=== PATIENT | male | born 1950 | race Caucasian/White ===

== ENCOUNTER 2021-11-16 15:09 | Inpatient (IN) ==
[2021-11-16] MEDS ORDERED: 0.9 % Sodium Chloride 1,000 ML IVC ONE (15:45)
[2021-11-16] MEDS ORDERED: Pantoprazole 80 MG in 0.9 % Sodium Chloride 50 ML IVPB ONE (15:45)
[2021-11-16] MEDS ORDERED: Isovue-370 500 ML BOTTLE IVP ONE (15:47)
[2021-11-16 15:59] LABS: Hematocrit 34.8 % (37.5-50.1); Immature Granulocytes % 0.3 % (0-4); Mean Corpuscular HGB Conc 28.7 g/dL (31.6-35.5); Mean Corpuscular Hemoglobin 23.8 pg (28.0-33.3); Red Cell Distribution Width 17.2 % (11.5-14.5)
[2021-11-16 16:01] LABS: Basophils # 0.1 K/mcL (0.0-0.2); Basophils % 0.9 %; Eosinophils # 0.1 K/mcL (0.0-0.6); Eosinophils % 1.3 %; Immature Platelets 34.9 % (1.1-6.1); Lymphocytes # 0.9 K/mcL (0.6-4.6); Lymphocytes % 12.5 %; Mean Corpuscular Volume 82.7 fL (83.0-100.0); Monocytes # 0.4 K/mcL (0.0-1.3); Monocytes % 6.1 %; Neutrophils # 5.4 K/mcL (1.6-8.9); Platelet Count 80 K/mcL (140-400); Red Blood Count 4.21 M/mcL (4.19-5.50); Segmented Neutrophils % 78.9 %; White Blood Count 6.9 K/mcL (4.3-11.1)
[2021-11-16] MEDS ORDERED: Ondansetron 4 MG/2 ML VIAL IVP ONE (16:06)
[2021-11-16 16:07] LABS: INR 1.4; Prothrombin Time 16.1 Seconds (9.4-12.1)
[2021-11-16 16:09] LABS: Activated Partial Thrombo Time 38.2 Seconds (26.0-36.0)
[2021-11-16 16:16] LABS: BUN/Creatinine Ratio 30 (6-26); Blood Urea Nitrogen 29 mg/dL (8-23); Calcium 8.6 mg/dL (8.6-10.3); Carbon Dioxide 21 mEq/L (23-29); Chloride 103 mEq/L (98-107); Glucose 143 mg/dL (70-105); Osmolality,Calculated 282 (280-300); Potassium 3.9 mEq/L (3.5-5.1); Sodium 132 mEq/L (136-145); eGFR For African Americans > 60 (> 60); eGFR For Non-African Americans > 60 (> 60)
[2021-11-16 16:19] LABS: Anisocytosis 1+ (Not Present); Platelet Clumps Few (Not Present); Platelet Estimate Decreased (Normal); Reactive Lymphocytes Present (Not Present)
[2021-11-16 16:20] LABS: Hypochromasia Present (Not Present); Microcytosis Present (Not Present)
[2021-11-16 20:38] LABS: Hematocrit 28.5 % (37.5-50.1); Hemoglobin 8.3 g/dL (12.9-16.9); Immature Platelets 32.4 % (1.1-6.1); Mean Corpuscular HGB Conc 29.1 g/dL (31.6-35.5); Mean Corpuscular Hemoglobin 23.9 pg (28.0-33.3); Mean Corpuscular Volume 82.1 fL (83.0-100.0); Red Blood Count 3.47 M/mcL (4.19-5.50); Red Cell Distribution Width 17.2 % (11.5-14.5); White Blood Count 3.8 K/mcL (4.3-11.1)
[2021-11-16 20:40] LABS: Platelet Count 56 K/mcL (140-400)
[2021-11-16] MEDS ORDERED: cefTRIAXone 1,000 MG in 0.9 % Sodium Chloride Mini Bag 100 ML IVPB ONE (20:49)
[2021-11-16] MEDS: Octreotide 400 MCG in 0.9 % Sodium Chloride 100 ML IVC SCH (21:19)
[2021-11-16] MEDS: Pantoprazole 40 MG in 0.9 % Sodium Chloride Mini Bag 100 ML IVC SCH (21:19)
[2021-11-16] MEDS ORDERED: Naloxone 0.4 MG/ML INJ IVP PRN (21:52)
[2021-11-16] MEDS ORDERED: Ondansetron ODT 4 MG TAB.RAPDIS SL PRN (21:52)
[2021-11-16] MEDS ORDERED: Dextrose Gel 15 GM/37.5 ML TUBE PO PRN ×2 (22:04)
[2021-11-16] MEDS ORDERED: D5% in Water 1,000 ML IVC PRN (22:04)
[2021-11-16] MEDS ORDERED: *HR* Dextrose 50 % in Water (Syg) 50 ML SYRINGE IVP PRN (22:04)
[2021-11-16 23:48] LABS: Albumin 2.8 g/dL (3.5-5.7); Albumin/Globulin Ratio 0.7 (1.1-2.2); Bilirubin,Direct 0.2 mg/dL (0.0-0.2); Bilirubin,Indirect 0.5 mg/dL (0.0-1.0); Bilirubin,Total 0.7 mg/dL (0.3-1.0); Globulin 4.2 g/dL (2.4-3.5)
[2021-11-17] MEDS: Pantoprazole 40 MG in 0.9 % Sodium Chloride Mini Bag 100 ML IVC SCH ×4 (02:09→16:38)
[2021-11-17 02:33] LABS: Hematocrit 27.5 % (37.5-50.1); Hemoglobin 7.9 g/dL (12.9-16.9)
[2021-11-17 02:41] LABS: INR 1.4; Prothrombin Time 15.8 Seconds (9.4-12.1)
[2021-11-17 02:44] LABS: Activated Partial Thrombo Time 34.6 Seconds (26.0-36.0)
[2021-11-17 02:49] LABS: BUN/Creatinine Ratio 26 (6-26); Blood Urea Nitrogen 22 mg/dL (8-23); Calcium 7.7 mg/dL (8.6-10.3); Carbon Dioxide 20 mEq/L (23-29); Chloride 110 mEq/L (98-107); Chol/HDL Ratio 4.2 (0-4.9); Cholesterol 71 mg/dL (< 200); Glucose 108 mg/dL (70-105); HDL Cholesterol 17 mg/dL (40-59); LDL Cholesterol,Calculated 42 mg/dL (< 100); Magnesium 1.5 mg/dL (1.6-2.6); Osmolality,Calculated 282 (280-300); Potassium 3.9 mEq/L (3.5-5.1); Sodium 134 mEq/L (136-145); Triglycerides 61 mg/dL (< 150); eGFR For African Americans > 60 (> 60); eGFR For Non-African Americans > 60 (> 60)
[2021-11-17 03:45] LABS: Estimated Average Glucose 100 mg/dl; Hemoglobin A1C 5.1 %
[2021-11-17] MEDS: Octreotide 400 MCG in 0.9 % Sodium Chloride 100 ML IVC SCH ×2 (06:47→15:36)
[2021-11-17] MEDS: Insulin LISPRO 300 UNITS/3 ML VIAL SUBQ SCH ×3 (08:41→17:41)
[2021-11-17 09:29] LABS: Hemoglobin 7.8 g/dL (12.9-16.9)
[2021-11-17 09:31] LABS: Hematocrit 27.2 % (37.5-50.1)
[2021-11-17] MEDS ORDERED: Metoclopramide 10 MG/2 ML VIAL IVP ONE (15:29)
[2021-11-17] MEDS ORDERED: Lidocaine -MPF 2% 5 ML VIAL ONE (17:18)
[2021-11-17] MEDS ORDERED: Ondansetron 4 MG/2 ML VIAL ONE (18:22)
[2021-11-17] MEDS ORDERED: cefTRIAXone 1,000 MG in 0.9 % Sodium Chloride Mini Bag 100 ML IVPB SCH (21:00)
[2021-11-18 03:45] LABS: Hemoglobin 7.5 g/dL (12.9-16.9)
[2021-11-18 03:47] LABS: Basophils % 1.5 %; Eosinophils # 0.1 K/mcL (0.0-0.6); Eosinophils % 4.6 %; Hematocrit 26.7 % (37.5-50.1); Immature Granulocytes % 0.4 % (0-4); Immature Platelets 34.2 % (1.1-6.1); Lymphocytes # 0.4 K/mcL (0.6-4.6); Lymphocytes % 14.9 %; Mean Corpuscular HGB Conc 28.1 g/dL (31.6-35.5); Mean Corpuscular Hemoglobin 23.8 pg (28.0-33.3); Mean Corpuscular Volume 84.8 fL (83.0-100.0); Monocytes # 0.3 K/mcL (0.0-1.3); Monocytes % 9.9 %; Neutrophils # 1.8 K/mcL (1.6-8.9); Red Blood Count 3.15 M/mcL (4.19-5.50); Red Cell Distribution Width 17.1 % (11.5-14.5); Segmented Neutrophils % 68.7 %; White Blood Count 2.6 K/mcL (4.3-11.1)
[2021-11-18 03:57] LABS: Platelet Count 46 K/mcL (140-400)
[2021-11-18 04:05] LABS: BUN/Creatinine Ratio 17 (6-26); Blood Urea Nitrogen 17 mg/dL (8-23); Calcium 7.5 mg/dL (8.6-10.3); Carbon Dioxide 22 mEq/L (23-29); Chloride 109 mEq/L (98-107); Glucose 109 mg/dL (70-105); Osmolality,Calculated 280 (280-300); Sodium 134 mEq/L (136-145); eGFR For African Americans > 60 (> 60); eGFR For Non-African Americans > 60 (> 60)
[2021-11-18] MEDS: Insulin LISPRO 300 UNITS/3 ML VIAL SUBQ SCH ×2 (07:28→12:45)
[2021-11-18 07:52] VITALS: BP 100/65; PULSE 76; TEMP 99.2; O2SAT 96
[2021-11-18 09:56] LABS: Hematocrit 27.9 % (37.5-50.1)
[2021-11-18 09:59] LABS: % Iron Saturation 4 % (20-55); Iron 13 mcg/dL (65-175); Transferrin 264 mg/dL (203-362)
[2021-11-18 10:16] LABS: Folate 10.9 ng/mL (3.0-16.0)
[2021-11-18 10:17] LABS: Ferritin 17 ng/mL (20-250)
== END 2021-11-18 13:55 | disposition home or self-care (01) | DRG 378 ==
LOC: EMEROOARM 15:09 → 3ANU 15:09 → SUATTDRO 11-17 15:13
PROVIDERS: ADMIT Internal Medicine; ATTEND Internal Medicine

== ENCOUNTER 2022-03-22 11:54 | Inpatient (IN) ==
[2022-03-22] MEDS ORDERED: Ondansetron 4 MG/2 ML VIAL ONE (13:07)
[2022-03-22] MEDS ORDERED: Ondansetron 4 MG/2 ML VIAL IVP ONE (13:10)
[2022-03-22 13:15] LABS: Basophils % 0.2 %
[2022-03-22 13:17] LABS: Eosinophils % 0.1 %; Hematocrit 41.5 % (37.5-50.1); Immature Granulocytes % 0.2 % (0-4); Immature Platelets 31.4 % (1.1-6.1); Lymphocytes # 0.6 K/mcL (0.6-4.6); Mean Corpuscular HGB Conc 31.3 g/dL (31.6-35.5); Mean Corpuscular Volume 79.8 fL (83.0-100.0); Monocytes # 0.6 K/mcL (0.0-1.3); Monocytes % 6.4 %; Neutrophils # 7.7 K/mcL (1.6-8.9); Red Cell Distribution Width 19.5 % (11.5-14.5); Segmented Neutrophils % 86.1 %; White Blood Count 8.9 K/mcL (4.3-11.1)
[2022-03-22 13:21] LABS: ABG Base Excess -2 mEq/L (-2 to 3); ABG HCO3 19 mEq/L (21-27); ABG Oxygen Saturation 97 % (95-98); ABG PCO2 25 mmHg (35-45); ABG PO2 79 mmHg (85-104); ABG TCO2 20 mEq/L (20-26)
[2022-03-22 13:22] LABS: Platelet Count 70 K/mcL (140-400)
[2022-03-22 13:29] LABS: INR 1.5; Prothrombin Time 16.8 Seconds (9.4-12.1)
[2022-03-22 13:31] LABS: Activated Partial Thrombo Time 35.4 Seconds (26.0-36.0)
[2022-03-22 13:48] LABS: Ethanol <= -10 mg/dL (Less than 10)
[2022-03-22 13:49] LABS: Alanine Aminotransferase 16 Units/L (7-52); Albumin 3.1 g/dL (3.5-5.7); Albumin/Globulin Ratio 0.6 (1.1-2.2); Alkaline Phosphatase 79 Units/L (34-104); Aspartate Amino Transferase 38 Units/L (13-39); BUN/Creatinine Ratio 17 (6-26); Bilirubin,Total 2.2 mg/dL (0.3-1.0); Blood Urea Nitrogen 19 mg/dL (8-23); Calcium 8.2 mg/dL (8.6-10.3); Carbon Dioxide 22 mEq/L (23-29); Chloride 103 mEq/L (98-107); Creatine Kinase 155 Units/L (30-223); Glucose 89 mg/dL (70-105); Lipase 6 Units/L (11-82); Osmolality,Calculated 288 (280-300); Sodium 138 mEq/L (136-145); Total Protein 8.1 g/dL (6.4-8.9); Troponin I < 0.03 ng/mL (< 0.04); eGFR For African Americans > 60 (> 60); eGFR For Non-African Americans > 60 (> 60)
[2022-03-22 13:50] LABS: Adenovirus Not Detected (Not Detect); Bordetella Pertussis Not Detected (Not Detect); Chlamydophila pneumoniae Not Detected (Not Detect); Coronavirus 229E Not Detected (Not Detect); Coronavirus HKU1 Not Detected (Not Detect); Coronavirus NL63 Not Detected (Not Detect); Coronavirus OC43 Not Detected (Not Detect); Human Metapneumovirus Not Detected (Not Detect); Human Rhinovirus/Enterovirus Not Detected (Not Detect); Influenza A Subtype 2009 H1 Not Detected (Not Detect); Influenza B Not Detected (Not Detect); Mycoplasma pneumoniae Not Detected (Not Detect); Parainfluenza Virus 1 Not Detected (Not Detect); Parainfluenza Virus 2 Not Detected (Not Detect); Parainfluenza Virus 3 Not Detected (Not Detect); Parainfluenza Virus 4 Not Detected (Not Detect); Respiratory Syncytial Virus Not Detected (Not Detect); SARS-CoV-2 Not Detected (Not Detect)
[2022-03-22 13:57] LABS: Bacteria,Urine Few per hpf (None-Few); Bilirubin,Urine Negative (Negative); Blood,Urine Negative (Negative); Clarity,Urine Clear (Clear); Color,Urine Orange (Yellow); Glucose,Urine (UA) Normal (Normal); Ketones,Urine 20 mg/dL (Negative); Leukocyte Esterase,Urine Negative (Negative); Mucus,Urine Few per lpf (None-Few); Nitrite,Urine Negative (Negative); Protein,Urine 30 mg/dL (Neg-Trace); RBC,Urine 0-3 per hpf (0-3); Specific Gravity,Urine > 1.030 (1.010-1.025); Squamous Epithelial Cell,Urine Few per hpf (None-Few); WBC,Urine 0-3 per hpf (0-3)
[2022-03-22 14:28] LABS: Amphetamine Screen,Urine Negative ng/mL (Cutoff=1000); Barbiturate Screen,Urine Negative ng/mL (Cutoff=200); Benzodiazepines Screen,Urine Negative ng/mL (Cutoff=200); Cannabinoid Screen,Urine Positive ng/mL (Cutoff = 50); Cocaine Screen,Urine Negative ng/mL (Cutoff= 300); Opiate Screen,Urine Negative ng/mL (Cutoff=300); Phencyclidine Screen,Urine Negative ng/mL (Cutoff=25)
[2022-03-22] MEDS ORDERED: 0.9 % Sodium Chloride 1,000 ML IVC ONE (14:33)
[2022-03-22] MEDS: Lactulose Oral Soln 20 GM/30 ML UDC PO ONE ×2 (14:46→14:57)
[2022-03-22] MEDS ORDERED: Lactulose 200 GM, Sodium Chloride IRRigation 700 ML RC ONE ×2 (15:30→21:23)
[2022-03-22] MEDS ORDERED: Melatonin 3 MG TABLET PO PRN (15:43)
[2022-03-22] MEDS: Lactulose Oral Soln 20 GM/30 ML UDC PO SCH ×2 (18:19→21:25)
[2022-03-22] MEDS: Ondansetron 4 MG/2 ML VIAL IVP PRN (18:30)
[2022-03-22] MEDS: cefTRIAXone 2,000 MG in 0.9 % Sodium Chloride 20 ML IVP SCH (18:31)
[2022-03-23 05:03] LABS: Hematocrit 35.3 % (37.5-50.1)
[2022-03-23 05:05] LABS: Hemoglobin 11.3 g/dL (12.9-16.9); Immature Platelets 26.2 % (1.1-6.1); Mean Corpuscular Hemoglobin 25.3 pg (28.0-33.3); Red Blood Count 4.47 M/mcL (4.19-5.50); Red Cell Distribution Width 19.5 % (11.5-14.5); White Blood Count 7.5 K/mcL (4.3-11.1)
[2022-03-23 05:06] LABS: Platelet Count 59 K/mcL (140-400)
[2022-03-23 05:09] LABS: INR 1.7; Prothrombin Time 18.9 Seconds (9.4-12.1)
[2022-03-23 05:22] LABS: Alanine Aminotransferase 13 Units/L (7-52); Albumin 2.6 g/dL (3.5-5.7); Albumin/Globulin Ratio 0.6 (1.1-2.2); Alkaline Phosphatase 65 Units/L (34-104); Aspartate Amino Transferase 30 Units/L (13-39); BUN/Creatinine Ratio 20 (6-26); Bilirubin,Direct 0.9 mg/dL (0.0-0.2); Bilirubin,Indirect 0.9 mg/dL (0.0-1.0); Bilirubin,Total 1.8 mg/dL (0.3-1.0); Blood Urea Nitrogen 18 mg/dL (8-23); Calcium 7.9 mg/dL (8.6-10.3); Carbon Dioxide 19 mEq/L (23-29); Chloride 107 mEq/L (98-107); Globulin 4.4 g/dL (2.4-3.5); Glucose 141 mg/dL (70-105); Magnesium 1.9 mg/dL (1.6-2.6); Osmolality,Calculated 292 (280-300); Phosphorous 2.6 mg/dL (2.7-4.5); Potassium 3.4 mEq/L (3.5-5.1); Sodium 139 mEq/L (136-145); eGFR For African Americans > 60 (> 60); eGFR For Non-African Americans > 60 (> 60)
[2022-03-23] MEDS: cefTRIAXone 2,000 MG in 0.9 % Sodium Chloride 20 ML IVP SCH (09:06)
[2022-03-23] MEDS: Lactulose Oral Soln 20 GM/30 ML UDC PO SCH ×4 (09:06→20:00)
[2022-03-23] MEDS: Ondansetron 4 MG/2 ML VIAL IVP PRN ×2 (09:27→23:22)
[2022-03-23] MEDS: *HR* Promethazine 25 MG/ML VIAL IM PRN (14:43)
[2022-03-23] MEDS: Acetaminophen 325 MG TABLET PO PRN (23:22)
[2022-03-24] MEDS: Acetaminophen 325 MG TABLET PO PRN (05:33)
[2022-03-24] MEDS: Ondansetron 4 MG/2 ML VIAL IVP PRN ×2 (05:34→13:57)
[2022-03-24] MEDS: cefTRIAXone 2,000 MG in 0.9 % Sodium Chloride 20 ML IVP SCH (08:45)
[2022-03-24] MEDS: Lactulose Oral Soln 20 GM/30 ML UDC PO SCH ×4 (08:45→20:23)
[2022-03-24] MEDS ORDERED: Ipratropium/Albuterol Neb 3 ML IH PRN (09:50)
[2022-03-25 04:47] LABS: Mean Corpuscular Hemoglobin 25.1 pg (28.0-33.3)
[2022-03-25 04:49] LABS: Hematocrit 35.8 % (37.5-50.1); Hemoglobin 11.3 g/dL (12.9-16.9); Immature Platelets 26.7 % (1.1-6.1); Mean Corpuscular HGB Conc 31.6 g/dL (31.6-35.5); Mean Corpuscular Volume 79.4 fL (83.0-100.0); Red Blood Count 4.51 M/mcL (4.19-5.50); Red Cell Distribution Width 19.2 % (11.5-14.5); White Blood Count 6.4 K/mcL (4.3-11.1)
[2022-03-25 04:50] LABS: Platelet Count 49 K/mcL (140-400)
[2022-03-25 04:57] LABS: INR 1.7; Prothrombin Time 19.3 Seconds (9.4-12.1)
[2022-03-25 05:03] LABS: Alanine Aminotransferase 12 Units/L (7-52); Albumin 2.8 g/dL (3.5-5.7); Albumin/Globulin Ratio 0.7 (1.1-2.2); Alkaline Phosphatase 62 Units/L (34-104); Aspartate Amino Transferase 27 Units/L (13-39); BUN/Creatinine Ratio 14 (6-26); Bilirubin,Direct 0.7 mg/dL (0.0-0.2); Bilirubin,Total 1.7 mg/dL (0.3-1.0); Blood Urea Nitrogen 13 mg/dL (8-23); Calcium 8.3 mg/dL (8.6-10.3); Carbon Dioxide 22 mEq/L (23-29); Chloride 106 mEq/L (98-107); Globulin 4.2 g/dL (2.4-3.5); Glucose 136 mg/dL (70-105); Osmolality,Calculated 284 (280-300); Potassium 3.4 mEq/L (3.5-5.1); Sodium 136 mEq/L (136-145); eGFR For African Americans > 60 (> 60); eGFR For Non-African Americans > 60 (> 60)
[2022-03-25] MEDS ORDERED: Furosemide 20 MG TABLET PO SCH (09:00)
[2022-03-25] MEDS ORDERED: Spironolactone 25 MG TABLET PO SCH (09:00)
[2022-03-25] MEDS: cefTRIAXone 2,000 MG in 0.9 % Sodium Chloride 20 ML IVP SCH (09:43)
[2022-03-25] MEDS: Lactulose Oral Soln 20 GM/30 ML UDC PO SCH ×4 (09:44→21:15)
[2022-03-25] MEDS: Spironolactone 25 MG TABLET PO SCH (17:53)
[2022-03-25] MEDS: Furosemide 20 MG TABLET PO SCH (17:54)
[2022-03-25] MEDS: Ondansetron 4 MG/2 ML VIAL IVP PRN (21:16)
[2022-03-26] MEDS: *HR* Promethazine 25 MG/ML VIAL IM PRN (01:43)
[2022-03-26] MEDS: Furosemide 20 MG TABLET PO SCH ×2 (09:53→17:08)
[2022-03-26] MEDS: Spironolactone 25 MG TABLET PO SCH ×2 (09:53→17:08)
[2022-03-26] MEDS: Lactulose Oral Soln 20 GM/30 ML UDC PO SCH ×4 (09:53→21:03)
[2022-03-26] MEDS: cefTRIAXone 2,000 MG in 0.9 % Sodium Chloride 20 ML IVP SCH (09:53)
[2022-03-26] MEDS: Ondansetron 4 MG/2 ML VIAL IVP PRN (21:03)
[2022-03-27 05:40] LABS: Hematocrit 38.4 % (37.5-50.1); Hemoglobin 12.3 g/dL (12.9-16.9); Immature Platelets 30.8 % (1.1-6.1); Mean Corpuscular Hemoglobin 25.5 pg (28.0-33.3); Mean Corpuscular Volume 79.5 fL (83.0-100.0); Red Blood Count 4.83 M/mcL (4.19-5.50); Red Cell Distribution Width 19.7 % (11.5-14.5); White Blood Count 6.3 K/mcL (4.3-11.1)
[2022-03-27 06:00] LABS: Platelet Count 53 K/mcL (140-400)
[2022-03-27 06:16] LABS: Alanine Aminotransferase 31 Units/L (7-52); Albumin 2.9 g/dL (3.5-5.7); Albumin/Globulin Ratio 0.6 (1.1-2.2); Alkaline Phosphatase 69 Units/L (34-104); Aspartate Amino Transferase 81 Units/L (13-39); BUN/Creatinine Ratio 13 (6-26); Bilirubin,Direct 0.7 mg/dL (0.0-0.2); Bilirubin,Indirect 0.8 mg/dL (0.0-1.0); Bilirubin,Total 1.5 mg/dL (0.3-1.0); Blood Urea Nitrogen 12 mg/dL (8-23); Calcium 8.4 mg/dL (8.6-10.3); Carbon Dioxide 26 mEq/L (23-29); Chloride 103 mEq/L (98-107); Globulin 4.8 g/dL (2.4-3.5); Glucose 146 mg/dL (70-105); Magnesium 1.9 mg/dL (1.6-2.6); Osmolality,Calculated 284 (280-300); Potassium 3.4 mEq/L (3.5-5.1); Sodium 136 mEq/L (136-145); Total Protein 7.7 g/dL (6.4-8.9); eGFR For African Americans > 60 (> 60); eGFR For Non-African Americans > 60 (> 60)
[2022-03-27] MEDS: Spironolactone 25 MG TABLET PO SCH (09:07)
[2022-03-27] MEDS: Furosemide 20 MG TABLET PO SCH (09:08)
[2022-03-27] MEDS: Lactulose Oral Soln 20 GM/30 ML UDC PO SCH (09:08)
[2022-03-27] MEDS: cefTRIAXone 2,000 MG in 0.9 % Sodium Chloride 20 ML IVP SCH (09:08)
[2022-03-27] MEDS ORDERED: *HR* OxyCODONE Immed Rel 5 MG TABLET PO PRN (10:19)
[2022-03-27] MEDS ORDERED: Spironolactone 25 MG TABLET PO SCH ×2 (10:30→17:00)
[2022-03-27] MEDS ORDERED: Furosemide 20 MG TABLET PO SCH ×2 (10:30→17:00)
[2022-03-27] MEDS ORDERED: Piperacillin/Tazobactam 4.5 GM in 0.9 % Sodium Chloride Mini Bag 100 ML IVPB STA (11:57)
[2022-03-27] MEDS ORDERED: *HR* HYDROmorphone (PF) 1 MG/ML SYRINGE IVP ONE (12:20)
[2022-03-27 16:10] VITALS: BP 128/76; PULSE 88; TEMP 97.7; O2SAT 91
[2022-03-27 18:09] LABS: VBG HCO3 25 mEq/L (21-27); VBG PCO2 39 mmHg (41-51); VBG PH 7.42 pH Units (7.32-7.42); VBG PO2 55 mmHg (25-50)
[2022-03-27] MEDS ORDERED: Piperacillin/Tazobactam 3.375 GM in 0.9 % Sodium Chloride Mini Bag 100 ML IVPB SCH (20:00)
== END 2022-03-27 21:18 | disposition short-term general hospital (02) | DRG 433 ==
LOC: SUATTDRO → EMEROOARM 11:54 → 3ANU 11:54 → SUATTDRO 15:52 → 3ANU 17:10
PROVIDERS: ADMIT Internal Medicine; ATTEND Internal Medicine